=== PATIENT | male | born 1990 | race Caucasian/White ===

== ENCOUNTER 2018-12-16 00:32 | Emergency (ER) | payer SELFPAY ==
[~2018-12-16] VITALS: Ht 175.3 cm; Wt 65.8 kg
[~2018-12-16 00:32] MED LIST: NORCO 10-325 T1 EACH PO; TYLENOL WITH C1 EAC1 PO
--- NOTE | 2018-12-16 03:12 | Diagnostic Imaging Report ---
Right forearm radiographs 2 views HISTORY: Pain. COMPARISON: None available. FINDINGS: Bones: No acute displaced fracture. Osseous alignment is within normal limits. Joints: The joint spaces are well-maintained. Soft tissues: A 4 mm linear metallic density in the dorsal medial soft tissues of the mid forearm. IMPRESSION: A 4 mm linear metallic foreign object in the dorsal medial soft tissues of the mid forearm. Signed by: Pancho Kline DO on 12/16/2018 3:09 AM
== END 2018-12-16 03:15 | disposition home or self-care (01) ==
LOC: FSED 00:32
DX: S51.841A Puncture wound with foreign body of right forearm, initial encounter (principal); W46.1XXA Contact with contaminated hypodermic needle, initial encounter; Z88.0 Allergy status to penicillin; F15.11 Other stimulant abuse, in remission
CPT/HCPCS: 99283